=== PATIENT | male | born 2005 | race Caucasian/White ===

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

== ENCOUNTER 2023-07-08 14:17 | Emergency (ER) | payer BC, SELFPAY ==
[2023-07-08 14:18] VITALS: BP 191/94; PULSE 102; RESP 24; TEMP 36.6; O2SAT 99; BMI 38.0
--- NOTE | 2023-07-08 15:18 | EDS_ITS ---
HPI HPI - GI History of Present Illness Chief Complaint: Abd Pain Informant: patient Abdominal Pain/Flank Pain Onset: Today Context: Sudden Onset Timing: Continuous Quality: Aching and Cramping Location: Diffuse Worsened by: Nothing Relieved by: Nothing Nausea/Vomiting/Emesis GI Symptom: Positive for Nausea and Vomiting Quality: Positive for Nonbilious; Negative for Blood streaks, Coffee ground or Hematemesis Diarrhea/Melena/Hematochezia GI Symptom: Negative for Diarrhea, Melena or Hematochezia Associated Symptoms Associated Symptoms: Negative for Dysuria, Frequency or Hematuria Narrative Narrative: Presents with abdominal pain, nausea, and vomiting that began today. Patient states his pain is cramping and aching. Patient states it is diffuse across his abdomen. Patient states this feels similar to prior episodes of E. coli infection. Patient denies any hematemesis or coffee-ground emesis. Patient denies any diarrhea, melena, or hematochezia. Patient denies any dysuria, frequency, or hematuria. Patient admits to some tingling in his face. Patient also admits to some subjective chills. PFSH PFS Medical History (Updated 07/08/23 @ 21:[address] Leonidas Bryant DO) Depression History of back problems Pilonidal cyst with abscess Rotator cuff arthropathy of right shoulder Home Medications ondansetron 4 mg disintegrating tablet 4 mg PO Q8H PRN PRN Nausea #10 tabs 07/08/23 [Rx Last Taken Unknown] Allergy/AdvReac Type Severity Reaction Status Date / Time horseradish Allergy Hives Verified 07/08/23 14:20 Family History Grandmother Asthma Breast cancer CVA (cerebral vascular accident) Grandfather Diabetes Mother Hypertension Father High blood cholesterol Aunt Lupus/autoimmune Other Heart disease Surgical History Hx of shoulder surgery Social History Smoking Status: Never smoker alcohol intake: never substance use type: does not use ROS ROS ED Constitutional Constitutional ED: Reports chills and subjective; Denies fever(s) Eyes Eyes: Denies blurry vision or change in vision ENT ENT ED: Reports rhinorrhea; Denies sore throat Cardiovascular Cardiovascular: Denies chest pain or palpitations Respiratory/Chest Respiratory/Chest: Denies cough or dyspnea Gastrointestinal Gastrointestinal: Reports abdominal pain, nausea and vomiting Genitourinary Genitourinary ED: Denies dysuria or hematuria Musculoskeletal Musculoskeletal: Denies back pain or neck pain Integumentary Denies abscess or rash Neurologic Neurologic: Denies headache(s) or weakness Allergic/Immunologic Allergic/Immunologic ED: Denies mouth swelling or urticaria EXAM Physical Exam Const Vital Signs: 07/08/23 14:18 07/08/23 18:17 Temperature 97.8 F Temperature Source Temporal Pulse Rate 102 H 74 Respiratory Rate 24 H 16 Blood Pressure 191/94 H 126/78 H Blood Pressure Mean 126 94 Pulse Ox 99 99 Oxygen Delivery Method Room Air Room Air Positive well nourished, well developed and obese General Appearance ED: well developed and NAD Nutritional Appearance: obese HEENT Reports moist mucous membranes Neck supple and no JVD Resp normal respiratory effort and clear to auscultation bilaterally Cardio regular rhythm Rate: tachycardic GI non-distended Palpation: soft and tender epigastric, LLQ, RLQ, LUQ, RUQ, periumbilical and suprapubic; Negative for guarding or rebound tenderness present Neuro CN's II-XII intact bilaterally, moves all extremities and no sensory deficits noted Sensorium / Orientation: alert Motor Exam: strength 5/5 throughout Psych mental status grossly normal and thought process normal MDM MDM MDM Narrative Medical decision making narrative: Differential diagnosis includes gastroenteritis, infectious diarrhea, bowel obstruction, perforation, pancreatitis, dehydration, electrolyte abnormality, colitis, and urinary tract infection. CBC will be obtained to assess for leukocytosis and anemia. Comprehensive metabolic profile will be obtained to assess for hepatic function, renal function, and electrolyte abnormality. Lipase will be obtained to assess for pancreatitis. Urinalysis will be obtained to assess for urinary tract infection and hematuria. Stool culture will be obtained to assess for infectious colitis. Lab Data Attestation: I reviewed the patient's lab results. Lab results narrative: CBC was reviewed. There is a mild leukocytosis of 17.9. Remainder is within normal limits. Comprehensive metabolic profile was reviewed. Glucose was slightly elevated at 129. Total bilirubin was slightly elevated at 1.1. The remainder is within normal limits. Lipase was reviewed and was normal at 28. Urinalysis was reviewed. Urine ketones were slightly elevated at 150. There is no evidence of urinary tract infection or hematuria. Labs: Laboratory Results - last 24 hr 07/08/23 07/08/23 15:43 17:15 WBC 17.9 H RBC 5.76 Hgb 16.4 Hct 47.3 MCV 82.1 MCH 28.5 MCHC 34.7 RDW Std Deviation 37.3 RDW Coeff of Tony 12.8 Plt Count 279 MPV 10.4 Immature Gran % (Auto) 0.500 Neut % (Auto) 87.0 H Lymph % (Auto) 7.2 L [place] % (Auto) 4.8 Eos % (Auto) 0.2 Baso % (Auto) 0.3 Absolute Neuts (auto) 15.6 H Absolute Lymphs (auto) 1.29 Nucleated RBC % 0 Sodium 136 Potassium 3.3 L Chloride 104 Carbon Dioxide 22.0 Anion Gap 10 BUN 16 Creatinine 1.12 Estim Creat Clear Calc 115.48 Est GFR (MDRD) Af Amer 108 Est GFR (MDRD) Non-Af 89 BUN/Creatinine Ratio 14.3 Glucose 129 H Calcium 10.3 H Total Bilirubin 1.10 H AST 21 ALT 46 Alkaline Phosphatase 80 Total Protein 8.3 H Albumin 4.4 Globulin 3.9 Albumin/Globulin Ratio 1.1 Lipase 28 Urine Color Yellow Urine Clarity Clear Urine pH 8.0 Ur Specific Cameron 1.015 Urine Protein 30 H Urine Glucose (UA) Normal Urine Ketones 150 A* Urine Occult Blood Negative Urine Nitrite Negative Urine Bilirubin Negative Urine Urobilinogen Normal Ur Leukocyte Esterase 25 H Urine RBC 0 SEEN Urine WBC 0-5 SEEN Ur Squamous Epith Cells 0 SEEN Urine Bacteria 0 SEEN Urine Mucus RARE Radiography Diagnostic Testing: Clinical Impression(s) from Imaging Studies Abdomen/Pelvis CT 07/08/23 18:05 IMPRESSION: No acute abnormalities in the abdomen or pelvis. Electronically Signed: Curtis Clark MD at 18:56 EST , CT scan of the abdomen pelvis was obtained. There is no acute abnormality noted. There is no free air or free fluid. There is no evidence of bowel obstruction or perforation. This was interpreted by the radiologist and was also independently reviewed by myself. Treatment and Re-Evaluation :: Patient was given IV fluids, morphine, and Zofran. Patient was given repeat doses of morphine and Zofran. Patient was also given a dose of Reglan and Toradol. Patient was given a p.o. challenge. Patient was able to keep his fluids down. Patient was advised of his findings. Patient was instructed to start with small amounts of fluids and ice chips and advance his diet as tolerated. Patient was given a prescription for Zofran. Patient was instructed to follow-up with his primary care physician in 5 to 7 days. Patient was instructed return if worse in any way. Patient and family understood and were agreeable with the plan. All questions were answered. Discharge Plan Triage Chief Complaint: Abd Pain ED Provider: Leonidas Bryant Dx/Rx/DC Orders Clinical Impression: Nausea and vomiting, Abdominal pain Instructions: ED Vomiting (Adult), ED Abdominal Pain Unkn Cause Male... Prescriptions: New ondansetron [ondansetron] 4 mg tablet,disintegrating 4 mg PO Q8H PRN PRN (Reason: Nausea) Qty: 10 0RF Primary Care Provider: Tano Horvath Referrals: Tano Horvath MD [Primary Care Provider] - 3-5 Days Disposition Disposition: Home, Self Care
[2023-07-08] MEDS: 0.9% Normal Saline (1000mL) 1,000 ML 1000 ML IV ×3 (15:39→20:45)
[2023-07-08] MEDS: Ondansetron 4 MG/2 ML Vial IV ×2 (15:39→17:28)
[2023-07-08] MEDS: Morphine 4 MG/ML Syringe IV ×2 (15:39→17:28)
[2023-07-08 15:53] LABS: Absolute Lymphocyte Count 1.29 X10^3/uL (0.83-4.51); Absolute Neutrophil Count 15.6 X10^3/uL (2.0-7.7); Basophil# 0.05 X10^3/uL; Basophil% 0.3 % (0-1); Eosinophil# 0.04 X10^3/uL; Eosinophils% 0.2 % (0-5); Hematocrit 47.3 % (40-54); Hemoglobin 16.4 g/dL (13.0-16.5); Lymphocyte # 1.29 X10^3/ul (0.83-4.51); Lymphocyte % 7.2 % (19-41); Mean Corp Hgb Conc 34.7 g/dL (32-36); Mean Corpuscular Hgb 28.5 pg (27.0-32.0); Mean Corpuscular Volume 82.1 fL (80-94); Mean Platelet Vol. 10.4 fl (6.2-12.0); Monocyte# 0.86 X10^3/uL; Monocyte% 4.8 % (0-10); NRBC Flagged by Analyzer 0 % (0-5); Neutrophil # 15.58 X10^3/uL (2.7-7.7); Platelet Count 279 K/mm3 (150-450); RBC Distribution Width CV 12.8 % (11.6-14.6); RBC Distribution Width SD 37.3 fl (35.1-43.9); Red Blood Count 5.76 M/mm3 (4.6-6.2); White Blood Count 17.9 K/mm3 (4.4-11.0)
[2023-07-08 16:19] LABS: ALB/GLOB Ratio 1.1 RATIO (0.9-2.4); AST(SGOT) 21 U/L (15-37); Alanine Aminotransfer ALT/SGPT 46 U/L (16-61); Albumin, Serum 4.4 g/dL (3.2-5.0); Alkaline Phosphatase 80 U/L (45-117); Anion Gap 10 (5-15); BUN 16 mg/dL (7-18); BUN/Creat Ratio 14.3 RATIO (10-20); Calcium,Total 10.3 mg/dL (8.5-10.1); Chloride 104 mmol/L (98-107); Creatinine, Serum 1.12 mg/dL (0.70-1.30); EST Glomerular Filtration Rate 89 mL/min (>60); Est Glom Filt Rate - Afr Amer 108 mL/min (>60); Estimated Creatinine Clearance 115.48 ml/min; Globulin 3.9 g/dL (2.2-4.2); Glucose 129 mg/dL (74-106); Lipase 28 U/L (13-75); Potassium 3.3 mmol/L (3.5-5.1); Protein, Total 8.3 g/dL (6.4-8.2); Sodium Level 136 mmol/L (136-145)
[2023-07-08 17:23] LABS: Bacteria 0 SEEN /hpf (None Seen); Red Blood Cells-Urine 0 SEEN /hpf (0-5); Squamous Epithelial Cells - UA 0 SEEN /hpf (0-5)
[2023-07-08 17:49] LABS: Color, Urine Yellow (Yellow); Glucose, Dipstick Normal (Normal); Leukocyte Esterase-Dipstick 25 /ul (Negative); Nitrite-Dipstick Negative (Negative); Occult Blood-Urine Negative /ul (Negative); Protein-Dipstick 30 mg/dl (Negative); Specific Gravity, Urine 1.015 (1.002-1.030); Urine Bilirubin Dipstick Negative (Negative); Urine Clarity Clear (Clear); Urine Urobilinogen Normal (Normal)
[2023-07-08 17:54] LABS: Ketone-Dipstick 150 mg/dl (Negative)
[2023-07-08 18:01] LABS: Mucous, Urine RARE /hpf (<or=2+); White Blood Cells 0-5 SEEN /hpf (0-5)
--- NOTE | 2023-07-08 18:05 | CT_ITS ---
INDICATION: Abdominal pain EXAMINATION: CT Abdomen And Pelvis W/ Contrast Injection TECHNIQUE: Helically acquired images were obtained of the abdomen and pelvis after IV contrast. A radiation dose optimization technique was used for this scan. IV Contrast dosage and agent: IV 100mL [id number]-300 Oral contrast: None. COMPARISON: 12/19/2022. FINDINGS: Visualized lung bases: Unremarkable Liver: Unremarkable Gallbladder: Unremarkable Spleen: Unremarkable Pancreas: Unremarkable Adrenal Glands: Unremarkable Kidneys: Unremarkable Vasculature: Unremarkable GI Tract: Unremarkable Lymphadenopathy: None Peritoneum: No ascites. Bladder: Unremarkable Reproductive organs: Unremarkable Bones/Soft tissues: No suspicious osseous or soft tissue lesions CT/Abdomen/Pelvis W IV Cont ONLY IMPRESSION: No acute abnormalities in the abdomen or pelvis. Electronically Signed: Curtis Clark MD at 18:56 EST ,
[2023-07-08 18:17] VITALS: BP 126/78; PULSE 74; RESP 16; O2SAT 99
[2023-07-08] MEDS: Metoclopramide 10 MG/2 ML Vial IV (19:24)
[2023-07-08] MEDS: Ketorolac 30 MG/ML Syringe IV (20:45)
[2023-07-08 21:32] VITALS: RESP 14
== END 2023-07-08 21:33 | disposition home or self-care (01) ==
PROVIDERS: Emergency Provider Emergency Medicine; PCP Family Medicine; Visit Provider Emergency Medicine
DX: R11.2 Nausea with vomiting, unspecified (principal); R10.9 Unspecified abdominal pain; E66.9 Obesity, unspecified
CPT/HCPCS: 74177; 80053; 81001; 83630; 83690; 85025; 87506; 96374; 96375; 96376; 99282; J7030; Q9967; A4216; J2405

== ENCOUNTER 2023-07-09 00:50 | Observation (INO) | payer BC, SELFPAY ==
[2023-07-09 00:50] VITALS: BP 173/96; PULSE 90; RESP 18; TEMP 36.5; O2SAT 100; BMI 39.4
--- NOTE | 2023-07-09 01:27 | EDS_ITS ---
HPI History of Present Illness Chief Complaint: Nausea/Vomiting Informant: patient and parent Narrative Narrative: Patient is a 18-year-old male with history of Shiga toxin E. coli colitis presenting with recurrent nausea vomiting abdominal pain. Patient was seen her ER earlier this evening. Stool studies are pending. He started having nausea and vomiting today. He was treated with IV fluids, Zofran, morphine, Reglan and Toradol. He was discharged home on Zofran. He took some Zofran on the way home but started having recurrent nausea and vomiting. He is now vomiting coffee- ground emesis. Has not really been able to eat anything besides what he p.o. challenge in the emergency room. He continues to have aching abdominal pain. He also had a CT of his abdomen pelvis this evening which did not show any acute process. Denies any chest pain. No report of any fevers. No other acute complaints at this time. No history of any abdominal surgeries. PFSH PFSH Medical History Depression History of back problems Pilonidal cyst with abscess Rotator cuff arthropathy of right shoulder Home Medications NK 07/09/23 [History Last Taken Unknown] Allergy/AdvReac Type Severity Reaction Status Date / Time horseradish Allergy Hives Verified 07/09/23 00:53 Family History Grandmother Asthma Breast cancer CVA (cerebral vascular accident) Grandfather Diabetes Mother Hypertension Father High blood cholesterol Aunt Lupus/autoimmune Other Heart disease Surgical History Hx of shoulder surgery Social History (Updated 07/09/23 @ 03:[address] Gwendolyn Singh MD) housing: other details: In college, [place] campus. Smoking Status: Never smoker alcohol intake: never substance use type: does not use ROS ROS ED Constitutional Constitutional ED: Reports chills; Denies fever(s) Cardiovascular Cardiovascular: Denies chest pain Respiratory/Chest Respiratory/Chest: Denies cough or dyspnea Gastrointestinal Gastrointestinal: Reports abdominal pain, nausea and vomiting; Denies melena Musculoskeletal Musculoskeletal: Denies arthralgias or myalgias Integumentary Denies rash Neurologic Neurologic: Denies headache(s) Hematologic/Lymphatic Hematologic/Lymphatic: Denies easy bleeding or easy bruising EXAM Physical Exam Const Vital Signs: 07/09/23 00:50 Temperature 97.7 F L Temperature Source Temporal Pulse Rate 90 Respiratory Rate 18 Blood Pressure 173/96 H Blood Pressure Mean 121 Pulse Ox 100 Oxygen Delivery Method Room Air Positive well nourished and well developed Constitutional Narrative: Uncomfortable appearing, vomiting General Appearance ED: well developed HEENT Reports moist mucous membranes Eyes PERRL and EOMs intact bilaterally General Eye ED: Negative for scleral icterus Neck supple Chest Wall inspection of chest normal and palpation of chest normal Chest Narrative: No chest wall tenderness or crepitus Resp normal respiratory effort and clear to auscultation bilaterally Cardio regular rate and regular rhythm GI GI Narrative: Mild diffuse tenderness, no peritoneal signs Extremity normal to inspection Neuro oriented x3 Sensorium / Orientation: alert Psych mental status grossly normal Skin no rashes or lesions noted and no wounds MDM MDM MDM Narrative Medical decision making narrative: Patient evaluated for recurrent nausea and vomiting. He seems to progress to some coffee-ground emesis. Will send off a Gastroccult to be sure. He is given IV Protonix, Zofran and fentanyl as well as IV fluid. He does have improvement. His white count is mildly downtrending is now 14.5 (was 17.9 couple hours ago). This still could be reactive from his vomiting. His hemoglobin is currently 16, if he can change from last night (16.4). No acute electrolyte abnormalities. Patient continues to have pain. His Gastroc cult is positive for blood. Patient does start feeling nauseous again and requires another dose of antinausea medicine, is ordered Compazine. Given his intractable abdominal discomfort, intractable vomiting and now GI bleeding will admit for symptom control and further monitoring. Patient and mother agreeable. He has normal vital signs, no crepitus and no peritoneal abdominal findings. Do not think he requires repeat imaging. I will associate for Boerhaave's and suspect more than likely this is a Radha-Ontiveros tear from his vomiting. Medicine will consult GI in the morning if clinically indicated. Case is discussed with admitting physician, Dr. Singh. Lab Data Attestation: I reviewed the patient's lab results. Labs: Laboratory Results - last 24 hr 07/09/23 07/09/23 01:30 01:45 WBC 14.5 H RBC 5.62 Hgb 16.0 Hct 46.5 MCV 82.7 MCH 28.5 MCHC 34.4 RDW Std Deviation 38.5 RDW Coeff of Tony 12.9 Plt Count 296 MPV 10.5 Immature Gran % (Auto) 0.500 Neut % (Auto) 91.2 H Lymph % (Auto) 5.2 L [place] % (Auto) 3.0 Eos % (Auto) 0.0 Baso % (Auto) 0.1 Absolute Neuts (auto) 13.3 H Absolute Lymphs (auto) 0.76 L Nucleated RBC % 0 Sodium 135 L Potassium 4.4 Chloride 104 Carbon Dioxide 22.0 Anion Gap 9 BUN 15 Creatinine 1.08 Estim Creat Clear Calc 119.75 Est GFR (MDRD) Af Amer 112 Est GFR (MDRD) Non-Af 93 BUN/Creatinine Ratio 13.9 Glucose 123 H Lactic Acid Cancelled Calcium 9.8 Total Bilirubin 0.90 AST 33 ALT 43 Alkaline Phosphatase 73 Total Protein 7.9 Albumin 4.1 Globulin 3.8 Albumin/Globulin Ratio 1.1 Lipase 46 Management Discussion w/another healthcare provider: Hospitalist Discharge Plan Dx/Rx/DC Orders Clinical Impression: Acute upper gastrointestinal bleeding, Nausea and vomiting, Abdominal pain, acute, epigastric Disposition Disposition: [facility] Discharge Date/Time: 07/09/23 04:56
[2023-07-09] MEDS: 0.9% Normal Saline (1000mL) 1,000 ML 999 ML IV (01:49)
[2023-07-09] MEDS: fentaNYL 100 MCG/2 ML Ampul 50 MCG IV ×2 (01:50→03:42)
[2023-07-09] MEDS: Ondansetron 4 MG/2 ML Vial IV ×2 (01:50→05:53)
[2023-07-09] MEDS: Pantoprazole Sodium 80 MG in 0.9% Normal Saline (50mL Bag) 15 ML 420 MG IV BOLUS (01:53)
[2023-07-09 01:56] LABS: Absolute Lymphocyte Count 0.76 X10^3/uL (0.83-4.51); Absolute Neutrophil Count 13.3 X10^3/uL (2.0-7.7); Basophil# 0.02 X10^3/uL; Basophil% 0.1 % (0-1); Hematocrit 46.5 % (40-54); Lymphocyte # 0.76 X10^3/ul (0.83-4.51); Lymphocyte % 5.2 % (19-41); Mean Corp Hgb Conc 34.4 g/dL (32-36); Mean Corpuscular Hgb 28.5 pg (27.0-32.0); Mean Corpuscular Volume 82.7 fL (80-94); Mean Platelet Vol. 10.5 fl (6.2-12.0); Monocyte# 0.43 X10^3/uL; NRBC Flagged by Analyzer 0 % (0-5); Neutrophil # 13.25 X10^3/uL (2.7-7.7); Neutrophil % 91.2 % (47-70); Platelet Count 296 K/mm3 (150-450); RBC Distribution Width CV 12.9 % (11.6-14.6); RBC Distribution Width SD 38.5 fl (35.1-43.9); Red Blood Count 5.62 M/mm3 (4.6-6.2); White Blood Count 14.5 K/mm3 (4.4-11.0)
[2023-07-09 01:59] LABS: ALB/GLOB Ratio 1.1 RATIO (0.9-2.4); AST(SGOT) 33 U/L (15-37); Alanine Aminotransfer ALT/SGPT 43 U/L (16-61); Albumin, Serum 4.1 g/dL (3.2-5.0); Alkaline Phosphatase 73 U/L (45-117); Anion Gap 9 (5-15); BUN 15 mg/dL (7-18); BUN/Creat Ratio 13.9 RATIO (10-20); Calcium,Total 9.8 mg/dL (8.5-10.1); Chloride 104 mmol/L (98-107); Creatinine, Serum 1.08 mg/dL (0.70-1.30); EST Glomerular Filtration Rate 93 mL/min (>60); Est Glom Filt Rate - Afr Amer 112 mL/min (>60); Estimated Creatinine Clearance 119.75 ml/min; Globulin 3.8 g/dL (2.2-4.2); Glucose 123 mg/dL (74-106); Lipase 46 U/L (13-75); Potassium 4.4 mmol/L (3.5-5.1); Protein, Total 7.9 g/dL (6.4-8.2); Sodium Level 135 mmol/L (136-145)
--- NOTE | 2023-07-09 03:29 | PCM.HP.STD ---
HPI - General General Date of Admission: 07/09/23 Date of Service: 07/09/23 Chief Complaint: Abdominal cramping, N/V. 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 He did have several episodes of significant projectile vomiting prior to some bright red blood and then coffee-ground appearing emesis. He denies any diarrhea with this illness and notes that when he was diagnosed with STEC in the past he also did not have diarrhea at that time. He notes this is consistent with his previous illness. Workup in the ED included T97.7, heart rate 90, BP 173/96, respiratory rate 18, 100% on room air, CBC with WBC 14.5, hemoglobin 16, platelet 296 with left shift and lymphopenia, CMP with sodium 135, glucose 123 otherwise unremarkable, lipase 46, emesis guaiac positive. Labs upon ED presentation the day prior 07/08/2023 with CBC with WBC 17.9, hemoglobin 16.4, platelet 279 with left shift, CMP with potassium 3.3, glucose 129, T. bili 1.10 otherwise hepatic profile not marked appearing, lipase 28, urinalysis with specific remedy 1.015, protein 30, urine ketones 150, leukocyte Estrace 25 otherwise no acute concerning findings, CT abdomen pelvis with contrast with no acute abnormalities. In the ED patient administered IV Protonix, Zofran and IV fentanyl as well as IV fluids. [facility] Medical History Depression History of back problems Pilonidal cyst with abscess Rotator cuff arthropathy of right shoulder Home Medications ondansetron 4 mg disintegrating tablet 4 mg PO Q8H PRN PRN Nausea #10 tabs 07/08/23 [Rx Last Taken Unknown] Allergy/AdvReac Type Severity Reaction Status Date / Time horseradish Allergy Hives Verified 07/09/23 00:53 Family History Grandmother Asthma Breast cancer CVA (cerebral vascular accident) Grandfather Diabetes Mother Hypertension Father High blood cholesterol Aunt Lupus/autoimmune Other Heart disease Surgical History Hx of shoulder surgery Social History (Updated 07/09/23 @ 03:[address] Gwendolyn Singh MD) housing: other details: In college, lives on campus. Smoking Status: Never smoker alcohol intake: never substance use type: does not use ROS ROS Narrative Admission Review of Systems: CONSTITUTIONAL: No weight loss, fever, + chills, weakness or fatigue. HEENT: Eyes: No visual loss, blurred vision, double vision or yellow sclerae. Ears, Nose, Throat: No hearing loss, sneezing, congestion, runny nose or sore throat. SKIN: No rash or itching, lesions, wounds. CARDIOVASCULAR: No chest pain, chest pressure or chest discomfort, palpitations, edema, orthopnea, syncopal events. RESPIRATORY: No shortness of breath, cough or sputum, wheezing, hemoptysis. GASTROINTESTINAL: + anorexia, nausea, vomiting, abdominal pain, coffee-ground emesis. No diarrhea, melena, BRBPR. GENITOURINARY: No dysuria, frequency, urgency or retention. NEUROLOGICAL: No headache, dizziness, syncope, paralysis, ataxia, numbness or tingling in the extremities, focal weakness, change in bowel or bladder control, seizure. MUSCULOSKELETAL: No muscle, back pain, joint pain or stiffness. HEMATOLOGIC: + bleeding. LYMPHATICS: No enlarged nodes. No history of splenectomy. PSYCHIATRIC: + history of depression or anxiety. ENDOCRINOLOGIC: No reports of sweating, cold or heat intolerance. No polyuria or polydipsia. ALLERGIES: + History of hives. Vital Signs Vital Signs Vital Signs: 07/09/23 00:50 Temperature 97.7 F L Temperature Source Temporal Pulse Rate 90 Respiratory Rate 18 Blood Pressure 173/96 H Blood Pressure Mean 121 Pulse Ox 100 Oxygen Delivery Method Room Air Weight Weight: 290 lb 5.581 oz Body Mass Index (BMI) 39.4 Physical Exam Narrative Physical Examination: General: Awake, alert, oriented x 3 and cooperative, seated upright in the ED bed, fatigued, ill-appearing. Skin: Normal color, normal turgor, no icterus, no cyanosis. HEENT: AT/NC, EOMI, PERRLA, dry MM, no carotid bruits or JVD noted. Lungs: CTA bilaterally, moderate effort, mild decrease BL bases, no rales, ronchi or wheezing. Heart: Regular rate and rhythm; no gallop, rub audible. Abdomen: Soft, generalized discomfort with no rebound or guarding, no marked distention, hyperactive BS, no appreciated HSM. Extremities: No cyanosis, clubbing, or edema. Neurological: Patient awake, alert, oriented as noted, cognitive function intact; pupils equally reactive to light and accommodation, cranial nerves II-XII grossly normal, moving all 4 extremities, no focal deficits, strength mildly to moderately globally decreased secondary to acute presentation. Psychiatric: Affect appears flat, fatigued, no acute evidence of depressive or anxiety feelings but does have underlying history. Results Lab / Micro Data 07/09/23 01:45 07/09/23 01:30 Labs: Laboratory Results - last 24 hr 07/09/23 01:30: Sodium 135 L, Potassium 4.4, Chloride 104, Carbon Dioxide 22.0, Anion Gap 9, BUN 15, Creatinine 1.08, Estim Creat Clear Calc 119.75, Est GFR (MDRD) Af Amer 112, Est GFR (MDRD) Non-Af 93, BUN/Creatinine Ratio 13.9, Glucose 123 H, Calcium 9.8, Total Bilirubin 0.90, AST 33, ALT 43, Alkaline Phosphatase 73, Total Protein 7.9, Albumin 4.1, Globulin 3.8, Albumin/Globulin Ratio 1.1, Lipase 46 07/09/23 01:45: WBC 14.5 H, RBC 5.62, Hgb 16.0, Hct 46.5, MCV 82.7, MCH 28.5, MCHC 34.4, RDW Std Deviation 38.5, RDW Coeff of Tony 12.9, Plt Count 296, MPV 10.5, Immature Gran % (Auto) 0.500, Neut % (Auto) 91.2 H, Lymph % (Auto) 5.2 L, [place] % (Auto) 3.0, Eos % (Auto) 0.0, Baso % (Auto) 0.1, Absolute Neuts (auto) 13.3 H, Absolute Lymphs (auto) 0.76 L, Nucleated RBC % 0, Lactic Acid Cancelled Micro: Microbiology 07/09/23 01:43 Vomitus Gastric Occult Blood - Final Occult Blood Positive Assessment & Plan Assessment/Plan (1) Nausea and vomiting: PLAN: Plan The patient is a 18 y/o M w/ PMHx: Depression and Anxiety, Hx STEC, recent ED presentation early in the evening the day prior secondary to nausea, emesis and abdominal pain with 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 #1. 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 #2. Hyperglycemia, mild: Admission glucose 123, repeat CMP in a.m. and if further elevated would evaluate further. #3. Anxiety and depression: Not on any regimen, encourage continued outpatient follow-up as needed. #4. DVT prophylaxis: Low risk. Charges/Coding Visit Charges Inpatient E&M: 22940 Init Hosp L2
[2023-07-09 03:33] VITALS: BP 157/89; PULSE 87; RESP 17; O2SAT 97
[2023-07-09] MEDS: proCHLORPERazine 10 MG/2 ML Vial IV (03:43)
[2023-07-09 05:10] VITALS: BP 101/54; PULSE 69; RESP 16; TEMP 36.9; O2SAT 97
[2023-07-09 05:14] VITALS: BMI 39.0
[2023-07-09] MEDS: 0.9% Saline Lock 10 ML Syringe IV ×3 (05:39→08:21)
[2023-07-09] MEDS: 0.9% Normal Saline (1000mL) 1,000 ML 125 ML IV (05:39)
[2023-07-09 06:38] LABS: Absolute Lymphocyte Count 0.97 X10^3/uL (0.83-4.51); Absolute Neutrophil Count 12.5 X10^3/uL (2.0-7.7); Basophil# 0.03 X10^3/uL; Basophil% 0.2 % (0-1); Hematocrit 46.5 % (40-54); Hemoglobin 15.6 g/dL (13.0-16.5); Lymphocyte # 0.97 X10^3/ul (0.83-4.51); Lymphocyte % 6.8 % (19-41); Mean Corp Hgb Conc 33.5 g/dL (32-36); Mean Corpuscular Hgb 28.4 pg (27.0-32.0); Mean Corpuscular Volume 84.7 fL (80-94); Mean Platelet Vol. 10.3 fl (6.2-12.0); Monocyte% 4.9 % (0-10); NRBC Flagged by Analyzer 0 % (0-5); Neutrophil # 12.47 X10^3/uL (2.7-7.7); Neutrophil % 87.5 % (47-70); Platelet Count 250 K/mm3 (150-450); RBC Distribution Width CV 13.1 % (11.6-14.6); RBC Distribution Width SD 39.9 fl (35.1-43.9); Red Blood Count 5.49 M/mm3 (4.6-6.2); White Blood Count 14.3 K/mm3 (4.4-11.0)
[2023-07-09 07:12] LABS: Lactic Acid 1.2 mmol/L (0.4-1.9)
[2023-07-09 07:13] LABS: ALB/GLOB Ratio 1.1 RATIO (0.9-2.4); AST(SGOT) 24 U/L (15-37); Alanine Aminotransfer ALT/SGPT 40 U/L (16-61); Albumin, Serum 4.2 g/dL (3.2-5.0); Alkaline Phosphatase 74 U/L (45-117); Anion Gap 11 (5-15); BUN 15 mg/dL (7-18); BUN/Creat Ratio 14.7 RATIO (10-20); Calcium,Total 8.9 mg/dL (8.5-10.1); Chloride 107 mmol/L (98-107); Creatinine, Serum 1.02 mg/dL (0.70-1.30); EST Glomerular Filtration Rate 99 mL/min (>60); Est Glom Filt Rate - Afr Amer 120 mL/min (>60); Globulin 3.9 g/dL (2.2-4.2); Glucose 111 mg/dL (74-106); Protein, Total 8.1 g/dL (6.4-8.2); Sodium Level 140 mmol/L (136-145)
[2023-07-09] MEDS: proCHLORPERazine 10 MG/2 ML Vial 5 MG IV (08:08)
[2023-07-09 08:14] VITALS: BP 180/81; PULSE 82; RESP 17; TEMP 37; O2SAT 100
[2023-07-09 08:20] VITALS: BP 180/81; PULSE 82
[2023-07-09] MEDS: hydrALAZINE 20 MG/ML Vial 10 MG IV (08:20)
[2023-07-09] MEDS: Pantoprazole Sodium 40 MG in 0.9% Normal Saline (100mL MB+) 100 ML 330 MG IV (08:20)
--- NOTE | 2023-07-09 08:28 | NURSING ---
pt vomited 200cc of pale brown/yellow emesis with large flecks of drker brown., Pt stated he vomited right before I called you. Referring to when he called this RN for antimetic.
--- NOTE | 2023-07-09 08:35 | PCM.HOSP.N ---
Hospitalist Note Patient is a 18-year-old male who presents emergency department was prehospital with abdominal pain, nausea, and vomiting earlier this morning. He reported recurrent nausea and emesis with some coffee-ground appearing emesis. He presented to the emergency department 2 days ago when it started and was treated emergency department IV fluids, Zofran, and morphine along with Reglan and Toradol and was discharged home with Zofran. Despite this he has had ongoing nausea and vomiting as well as abdominal discomfort that has been aching in nature. CT of the abdomen pelvis on previous ER admission had no acute process so he came to emergency department. He does have a history of Shiga toxin E. coli colitis in November 2022 after foreign travel. He denied having any diarrhea with this episode and did not have diarrhea with his previous Shiga toxin E. coli either. Vital signs emergency department showed a temperature of 97.7, heart rate 90, blood pressure was 173/96, respiratory was 18 oxygen saturations were 100% room air. CBC showed a mild leukocytosis at 14.5 and he appeared somewhat hemoconcentrated. His emesis was guaiac positive. He was admitted with a Protonix bolus given the emergency department, Zofran, IV fentanyl for abdominal pain and IV fluids. Radha-Ontiveros tear was a suspected with all his vomiting and he was admitted to the medical surgical floor with aggressive fluid hydration ongoing IV PPI twice daily, n.p.o. status until nausea and vomiting improves and enteric panel. Stool lactoferrin is negative and enteric pathogen is pending. Will also check a toxicology screen to rule out cyclic vomiting syndrome related to marijuana use.
[2023-07-09 12:06] LABS: Amphetamine Urine VISTA NEGATIVE (<1000 ng/mL); Barbiturate Urine VISTA NEGATIVE (< 200 ng/mL); Benzodiazepine Urine VISTA NEGATIVE (< 200 ng/mL); Cocaine Urine VISTA NEGATIVE (< 300 ng/mL); Ecstacy Urine VISTA NEGATIVE (< 500 ng/mL); Methadone Urine VISTA NEGATIVE (< 300 ng/mL); PCP Urine VISTA NEGATIVE (< 25 ng/mL); THC Urine VISTA POSITIVE (< 50 ng/mL); Vista UDS pH Range 5
[2023-07-09 12:32] LABS: Hemoglobin 14.3 g/dL (13.0-16.5)
--- NOTE | 2023-07-09 12:51 | NURSING ---
Dr. Connor aware that tox screen for [place] was positive.
[2023-07-09 13:57] VITALS: BP 138/75; PULSE 93; RESP 16; TEMP 36.8; O2SAT 98
--- NOTE | 2023-07-09 15:21 | DS.PCM_ITS ---
Providers Date of Admission: 07/09/23 Date of Discharge: 07/09/23 Primary Care Physician: Dr. Tano Horvath MD Reason For Visit: INTRACTABLE N/V Diagnosis Discharge Diagnosis (1) Nausea and vomiting: Status: Acute Code(s): R11.2 - Nausea with vomiting, unspecified Medications at Discharge Home Medications NK 07/09/23 Hospital Course Operations None Procedures - (CT abdomen and pelvis) Summary of Care Provided Minutes Spent on Discharge: 20 Hospital Course: Mr. Winslow is a 18-year-old male who presents emergency department was prehospital with abdominal pain, nausea, and vomiting earlier this morning. He reported recurrent nausea and emesis with some coffee-ground appearing emesis. He presented to the emergency department last evening started and was treated emergency department IV fluids, Zofran, and morphine along with Reglan and Toradol and was discharged home with Zofran. Despite this, he had ongoing na usea and vomiting as well as abdominal discomfort that has been aching in nature. CT of the abdomen pelvis on previous ER admission had no acute process so he came to emergency department. He does have a history of Shiga toxin E. coli colitis in November 2022 after foreign travel. He denied having any diarrhea with this episode and did not have diarrhea with his previous Shiga toxin E. coli either. Vital signs emergency department showed a temperature of 97.7, heart rate 90, blood pressure was 173/96, respiratory was 18 oxygen saturations were 100% room air. CBC showed a mild leukocytosis at 14.5 and he appeared somewhat hemoconcentrated. His emesis was guaiac positive. He was admitted wit h a Protonix bolus given the emergency department, Zofran, IV fentanyl for abdominal pain and IV fluids. Radha-Ontiveros tear was a suspected with all his vomiting and he was admitted to the medical surgical floor with aggressive fluid hydration ongoing IV PPI twice daily, n.p.o. status until nausea and vomiting improves and enteric panel. Stool lactoferrin is negative. Enteric panel was negative. His talk screen was positive for marijuana. And the patient did admit to recent use within the last 30 days. He denies chronic use. Without chronic use my suspicion for cyclic vomiting syndrome is low and this may have just been a viral etiology however I did discuss with the patient the importance of limiting marijuana use. Throughout the day he was feeling much improved and tolerated clear liquids and was advanced to regular diet with she tolerated without any difficulty. He was anxious to go home and was feeling much improved. We were able to get him discharged home in stable condition on 07/09/2023. His hemoglobin was stable throughout his hospital course. We did request that he utilize omeprazole 20 mg p.o. twice daily x 2 weeks while his gastric lining/esophageal lining heals from his retching. Discharge diagnoses: Intractable nausea and vomiting Mild dehydration Hematemesis with suspected Radha-Ontiveros tear-stable hemoglobin Anxiety Depression Marijuana use Physical Exam Const alert, oriented x3, no apparent distress, no limitations, healthy appearing and well nourished; Negative for average body habitus Constitutional Narrative: Obese, young, white male, lying in bed, initially looked as if he was feeling poorly however upon my return he appeared much improved and was tolerating regular food, nontoxic General Appearance: cooperative, comfortable, well kempt and well developed Orientation / Consciousness: awake, oriented to person, oriented to place and oriented to time Exam Limitations: no limitations Nutritional Appearance: obese HEENT normocephalic, head/scalp atraumatic, hearing grossly normal bilaterally and moist oral mucous membranes HEENT Narrative: Mallampati 3, no thrush Resp normal respiratory effort, no retractions, no use of accessory muscles and clear to auscultation bilaterally Auscultation: Negative for rales, rhonchi or wheezes Cardio regular rate, regular rhythm, S1 normal heart sound, S2 normal heart sound, no murmurs, no rub, no gallops and no clicks GI normal to inspection, nondistended, normoactive bowel sounds, soft to palpation and non-tender GI Narrative: Abdominal exam was initially diffuse mild tenderness however upon reexam tenderness had resolved Extremity no clubbing, cyanosis or edema Extremity Narrative: Pedal pulses are 2+ Neuro oriented x3, CN's II-XII intact bilaterally, moves all extremities and no focal motor deficits Sensorium / Orientation: awake, alert, oriented to person, oriented to place and oriented to time Speech: speech normal Psych affect normal Psych Narrative: Pleasant, interacts appropriately Weight / BMI Weight Weight: 130.8 kg Body Mass Index (BMI) 39.0 ABG / Lab / Microbiology Data 07/09/23 12:09 07/09/23 06:31 Laboratory: Laboratory Results - last 24 hr 07/09/23 01:30: Sodium 135 L, Potassium 4.4, Chloride 104, Carbon Dioxide 22.0, Anion Gap 9, BUN 15, Creatinine 1.08, Estim Creat Clear Calc 119.75, Est GFR (MDRD) Af Amer 112, Est GFR (MDRD) Non-Af 93, BUN/Creatinine Ratio 13.9, Glucose 123 H, Calcium 9.8, Total Bilirubin 0.90, AST 33, ALT 43, Alkaline Phosphatase 73, Total Protein 7.9, Albumin 4.1, Globulin 3.8, Albumin/Globulin Ratio 1.1, Lipase 46 07/09/23 01:45: WBC 14.5 H, RBC 5.62, Hgb 16.0, Hct 46.5, MCV 82.7, MCH 28.5, MCHC 34.4, RDW Std Deviation 38.5, RDW Coeff of Tony 12.9, Plt Count 296, MPV 10.5, Immature Gran % (Auto) 0.500, Neut % (Auto) 91.2 H, Lymph % (Auto) 5.2 L, [place] % (Auto) 3.0, Eos % (Auto) 0.0, Baso % (Auto) 0.1, Absolute Neuts (auto) 13.3 H, Absolute Lymphs (auto) 0.76 L, Nucleated RBC % 0, Lactic Acid Cancelled 07/09/23 06:31: WBC 14.3 H, RBC 5.49, Hgb 15.6, Hct 46.5, MCV 84.7, MCH 28.4, MCHC 33.5, RDW Std Deviation 39.9, RDW Coeff of Tony 13.1, Plt Count 250, MPV 10. 3, Immature Gran % (Auto) 0.600, Neut % (Auto) 87.5 H, Lymph % (Auto) 6.8 L, [place] % (Auto) 4.9, Eos % (Auto) 0.0, Baso % (Auto) 0.2, Absolute Neuts (auto) 12.5 H, Absolute Lymphs (auto) 0.97, Nucleated RBC % 0, Sodium 140, Potassium 4.0, Chloride 107, Carbon Dioxide 22.0, Anion Gap 11, BUN 15, Creatinine 1.02, Estim Creat Clear Calc 126.80, Est GFR (MDRD) Af Amer 120, Est GFR (MDRD) Non-Af 99, BUN/Creatinine Ratio 14.7, Glucose 111 H, Lactic Acid 1.2, Calcium 8.9, Total Bilirubin 0.80, AST 24, ALT 40, Alkaline Phosphatase 74, Total Protein 8.1, Albumin 4.2, Globulin 3.9, Albumin/Globulin Ratio 1.1 07/09/23 11:30: Urine Opiates Screen NEGATIVE, Urine Methadone Screen NEGATIVE, Ur Barbiturates Screen NEGATIVE, Ur Phencyclidine Scrn NEGATIVE, Ur Amphetamines Screen NEGATIVE, MDMA (Ecstasy) Screen NEGATIVE, U Benzodiazepines Scrn NEGATIVE, Urine Cocaine Screen NEGATIVE, U Cannabinoids Screen POSITIVE H, Ur Drug Screen Comment 07/09/23 12:09: Hgb 14.3 Microbiology: Microbiology 07/09/23 06:51 Mucosa - Nasopharyngeal Respiratory Panel (PCR) - Final 07/09/23 01:43 Vomitus Gastric Occult Blood - Final Occult Blood Positive D/C Instructions Discharge Diet: No restrictions Discharge Activity: Return to Normal Activity Return to work on: 07/10/23 Meaningful Use Info Meaningful Use Diagnoses (Choose all that apply): None applicable Discharge Plan Admission Admit Date/Time: 07/09/23 03:31 Primary Reason for Your Visit: Nausea and vomiting Attending Provider: Ethel Connor Primary Care Provider: Tano Horvath Consulting Providers: Gwendolyn Singh Instructions Additional Instructions / Restrictions: 1. Would recommend avoiding marijuana as marijuana use can cause cyclic vomiting syndrome 2. Purchase [id number]-[id number] omeprazole and take 20 mg twice daily for 2 weeks and then okay to stop Discharge Orders/Prescriptions Prescriptions: No Action NK Referrals / Follow Up: Tano Horvath MD [Primary Care Provider] - See Referral Note (As needed) Disposition Disposition (needs filled in before D/C Order can be placed): Home, Self Care Charges/Coding Visit Charges Inpatient E&M: 67123 Disch Hosp
== END 2023-07-09 17:51 | disposition home or self-care (01) ==
LOC: ED 01:16 → MS3 03:35
PROVIDERS: Admitting Provider Family Medicine; Emergency Provider Emergency Medicine; PCP Family Medicine; Visit Provider Internal Medicine
DX: K92.0 Hematemesis (principal); E86.0 Dehydration; F12.90 Cannabis use, unspecified, uncomplicated; R73.9 Hyperglycemia, unspecified
CPT/HCPCS: 36415; 80053; 80307; 82271; 83605; 83690; 85018; 85025; 87633; 96361; 96365; 96366; 96375; 96376; 99221; 99283; J7030; A4216; G0378; J2405; J3490

== ENCOUNTER 2023-07-09 21:21 | Emergency (ER) | payer BC, SELFPAY ==
[2023-07-09 21:22] VITALS: BP 140/106; PULSE 86; RESP 16; TEMP 36.1; O2SAT 100; BMI 39.3
--- NOTE | 2023-07-09 22:00 | EX.ED.DYSGE1 ---
HPI History of Present Illness Chief Complaint: Nausea/Vomiting Informant: patient and parent Narrative Narrative: Return to ED with mother recurrent vomiting 8:30 PM. Was just discharged at 5 PM today. Hospitalized for 2 days. He states cyclic vomiting. States there is been blood in his vomit however not massive bleeding or clots. He only smoked marijuana once reported a month ago. No issues in the past. Was seen twice Thursday. He was admitted. He is doing fine was discharged. Denies allergies. Denies urinary symptoms but denies diarrhea. Abdominal discomfort due to vomiting. Prior similar symptoms: Yes PFSH PFSH Medical History Depression History of back problems Pilonidal cyst with abscess Rotator cuff arthropathy of right shoulder Home Medications metoclopramide HCl 10 mg tablet (Reglan) 10 mg PO Q6H PRN nausea and vomiting #20 tabs 07/10/23 [Rx Last Taken Unknown] Allergy/AdvReac Type Severity Reaction Status Date / Time horseradish Allergy Hives Verified 07/09/23 21:22 Family History Grandmother Asthma Breast cancer CVA (cerebral vascular accident) Grandfather Diabetes Mother Hypertension Father High blood cholesterol Aunt Lupus/autoimmune Other Heart disease Surgical History Hx of shoulder surgery Social History housing: other details: In college, lives on campus. Smoking Status: Never smoker alcohol intake: never substance use type: does not use ROS ROS ED Constitutional Constitutional ED: Denies chills, fever(s) or sweats Eyes Eyes: Denies change in vision ENT ENT ED: Denies dysphagia or sore throat Cardiovascular Cardiovascular: Denies chest pain, leg edema, palpitations or racing heartbeat Respiratory/Chest Respiratory/Chest: Denies cough, dyspnea or dyspnea on exertion Gastrointestinal Gastrointestinal: Reports abdominal pain, nausea and vomiting; Denies diarrhea Genitourinary Genitourinary ED: Denies dysuria, hematuria or urinary frequency Musculoskeletal Musculoskeletal: Denies back pain, extremity pain or neck pain Integumentary Denies rash or wounds Neurologic Neurologic: Denies headache(s), paresthesias or weakness EXAM Physical Exam Const Vital Signs: 07/09/23 21:22 07/10/23 00:30 Temperature 97 F L Temperature Source Temporal Pulse Rate 86 80 Respiratory Rate 16 18 Blood Pressure 140/106 H 134/57 H Blood Pressure Mean 117 82 Pulse Ox 100 97 Positive well nourished and well developed Constitutional Narrative: Fatigue, nontoxic General Appearance ED: well developed HEENT Reports moist mucous membranes normocephalic and atraumatic Eyes PERRL, EOMs intact bilaterally and conjunctivae normal General Eye ED: Yes normal appearance of both eyes Neck no lymphadenopathy and supple General: Negative for tenderness Chest Wall Chest: Negative for tenderness Resp normal respiratory effort and normal air movement Effort and Inspection: symmetric chest movement; Negative for respiratory distress Cardio regular rate, regular rhythm and no murmurs Peripheral Pulses: pulses 2+ throughout GI normal to inspection, nondistended, normoactive bowel sounds GI Narrative: Mild generalized tenderness no guarding or rebound. Negative Reddy's or McBurney's tenderness. Palpation: Negative for guarding or rebound tenderness present Back/Spine no CVA tenderness and no thoracic nor lumbar tenderness Extremity normal to inspection General Extremety ED: Negative for edema or tenderness General Extremity: Negative for edema Neuro oriented x3 and no sensory deficits noted Sensorium / Orientation: awake and alert Skin no rashes or lesions noted and no wounds MDM MDM MDM Narrative Medical decision making narrative: Interventions / MDM: Differential diagnosis: Cyclic vomiting Diagnosis considered but do not suspect: No clinical pneumoperitoneum, cholecystitis, appendicitis My EKG interpretation: N/A Imaging independently reviewed and interpreted by myself: N/A External documents reviewed: Records noted seen in the ED yesterday afternoon and again earlier today 1 in the morning where he was admitted. Discharge at 5 PM complete was feeling better. Toxicology screen positive for THC. Test considered but not ordered:N/A ED course: Fatigued appearing vomiting, IV established abdominal labs IV fluids, IV Reglan Pepcid and capsaicin topical cream ordered to help with symptoms. 2330: Sleeping no emesis after capsaicin was given. Abdomen is soft on reevaluation. He states he was feeling better. Leukocytosis 17.4 likely reactive. No surgical abdomen. Lipase and electrolytes were normal. Fluids are being finished, we will continue to monitor we will plan to p.o. challenge for more awake. Most rediscussion with patient and stating his only use was a month ago, states typically this should not be seen in his toxicology screen as he is not infrequent user and only stated he used it once a month ago. 0000: Per nursing patient did go couple water. He was reevaluated he clinical is feeling much better. Do not feel reimaging is required as he is improved with a soft abdomen. No narcotics were given. Meds to bed with Regash, I sent home with capsaicin, he has Zofran at home. He is given GI already for outpatient follow-up. He did strip picker [id number] omeprazole 20 mg at home for plans of taking twice a day. All questions were answered. Re-evaluation: stable Disposition discussed with patient/family/significant other: Patient and mother Case discussed with consulting clinician: N/A This note was generated with [email or web address] dictation software. It may contain incorrect words, spelling, and punctuation that were not noted in checking the note before signing. Lab Data Attestation: I reviewed the patient's lab results. Labs: Laboratory Results - last 24 hr 07/09/23 21:45 WBC 17.4 H RBC 5.36 Hgb 15.2 Hct 44.9 MCV 83.8 MCH 28.4 MCHC 33.9 RDW Std Deviation 39.8 RDW Coeff of Tony 13.2 Plt Count 271 MPV 10.6 Immature Gran % (Auto) 0.500 Neut % (Auto) 84.7 H Lymph % (Auto) 6.8 L [place] % (Auto) 7.7 Eos % (Auto) 0.1 Baso % (Auto) 0.2 Absolute Neuts (auto) 14.8 H Absolute Lymphs (auto) 1.18 Nucleated RBC % 0 Sodium 137 Potassium 3.4 L Chloride 106 Carbon Dioxide 24.0 Anion Gap 7 BUN 11 Creatinine 1.02 Estim Creat Clear Calc 126.80 Est GFR (MDRD) Af Amer 120 Est GFR (MDRD) Non-Af 99 BUN/Creatinine Ratio 10.8 Glucose 115 H Calcium 9.6 Total Bilirubin 0.80 AST 18 ALT 37 Alkaline Phosphatase 71 Total Protein 7.8 Albumin 4.2 Globulin 3.6 Albumin/Globulin Ratio 1.2 Lipase 38 Discharge Plan Triage Chief Complaint: Nausea/Vomiting ED Provider: Wallace Huitron Dx/Rx/DC Orders Clinical Impression: Abdominal cramping, Cyclical vomiting Instructions: ED Cyclic Vomiting Syndrome Prescriptions: New metoclopramide HCl [Reglan] 10 mg tablet 10 mg PO Q6H PRN (Reason: nausea and vomiting) Qty: 20 0RF Primary Care Provider: Tano Horvath Referrals: Tano Horvath MD [Primary Care Provider] - Friend,DO Wayne [Med Staff - Active Staff] - 1-2 Weeks Activity Restrictions/Additional Instructions: Avoid marijuana use. Use topical cream as needed. Continue your omeprazole from home twice a day. Zofran and Reglan as needed continue oral fluids for hydration. Follow-up with GI as an outpatient. Disposition Disposition: Home, Self Care Discharge Date/Time: 07/10/23 00:32
[2023-07-09] MEDS: Metoclopramide 10 MG/2 ML Vial IV (22:04)
[2023-07-09] MEDS: 0.9% Normal Saline (1000mL) 1,000 ML 1000 ML IV (22:04)
[2023-07-09 22:13] LABS: Absolute Lymphocyte Count 1.18 X10^3/uL (0.83-4.51); Absolute Neutrophil Count 14.8 X10^3/uL (2.0-7.7); Basophil# 0.03 X10^3/uL; Basophil% 0.2 % (0-1); Eosinophil# 0.01 X10^3/uL; Eosinophils% 0.1 % (0-5); Hematocrit 44.9 % (40-54); Hemoglobin 15.2 g/dL (13.0-16.5); Lymphocyte # 1.18 X10^3/ul (0.83-4.51); Lymphocyte % 6.8 % (19-41); Mean Corp Hgb Conc 33.9 g/dL (32-36); Mean Corpuscular Hgb 28.4 pg (27.0-32.0); Mean Corpuscular Volume 83.8 fL (80-94); Mean Platelet Vol. 10.6 fl (6.2-12.0); Monocyte# 1.34 X10^3/uL; Monocyte% 7.7 % (0-10); NRBC Flagged by Analyzer 0 % (0-5); Neutrophil # 14.75 X10^3/uL (2.7-7.7); Neutrophil % 84.7 % (47-70); Platelet Count 271 K/mm3 (150-450); RBC Distribution Width CV 13.2 % (11.6-14.6); RBC Distribution Width SD 39.8 fl (35.1-43.9); Red Blood Count 5.36 M/mm3 (4.6-6.2); White Blood Count 17.4 K/mm3 (4.4-11.0)
[2023-07-09] MEDS: Capsaicin 0.025% 1 APPLIC Tube TOPICAL (22:34)
[2023-07-09] MEDS: Famotidine 200 MG/20 ML MDV 20 MG in 0.9% Normal Saline (Pres. free 8 ML 300 MG IV (22:34)
[2023-07-09 22:35] LABS: ALB/GLOB Ratio 1.2 RATIO (0.9-2.4); AST(SGOT) 18 U/L (15-37); Alanine Aminotransfer ALT/SGPT 37 U/L (16-61); Albumin, Serum 4.2 g/dL (3.2-5.0); Alkaline Phosphatase 71 U/L (45-117); Anion Gap 7 (5-15); BUN 11 mg/dL (7-18); BUN/Creat Ratio 10.8 RATIO (10-20); Calcium,Total 9.6 mg/dL (8.5-10.1); Chloride 106 mmol/L (98-107); Creatinine, Serum 1.02 mg/dL (0.70-1.30); EST Glomerular Filtration Rate 99 mL/min (>60); Est Glom Filt Rate - Afr Amer 120 mL/min (>60); Globulin 3.6 g/dL (2.2-4.2); Glucose 115 mg/dL (74-106); Lipase 38 U/L (13-75); Potassium 3.4 mmol/L (3.5-5.1); Protein, Total 7.8 g/dL (6.4-8.2); Sodium Level 137 mmol/L (136-145)
[2023-07-10 00:30] VITALS: BP 134/57; PULSE 80; RESP 18; O2SAT 97
== END 2023-07-10 00:32 | disposition home or self-care (01) ==
PROVIDERS: Emergency Provider Emergency Medicine; PCP Family Medicine; Visit Provider Emergency Medicine
DX: R10.9 Unspecified abdominal pain (principal); R11.15 Cyclical vomiting syndrome unrelated to migraine; F12.90 Cannabis use, unspecified, uncomplicated
CPT/HCPCS: 80053; 83690; 85025; 96365; 96375; 99283; J7030; A4216; J3490